=== PATIENT | female | born 1995 | race Hispanic/Latino ===

== ENCOUNTER 2017-09-06 09:24 | Emergency (ER) | payer MEDICAID ==
--- NOTE | 2017-09-06 10:50 | EDM.PDOC ---
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 she started with very slight spotting last evening which mildly increased this morning, now more like a menstrual period. She did have a positive home test about 2 weeks ago with follow-up test confirmed at a local clinicalso about 2 weeks ago. Not yet had her first visit. no chest pain, shortness of breath and also no shoulder pain . No weakness or dizziness, nausea or vomiting. Lower Back Pain Score (Numeric/FACES): 3 - Related Data Allergies Allergy/AdvReac Type Severity Reaction Status Date / Time No Known Allergies Allergy Verified 09/06/17 09:36 Home Meds: Home Meds . 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 Denies: Nausea, Vomiting : Reports: No Symptoms Musculoskeletal: Reports: Back Pain (occasional mild low back pain) Skin: Reports: No Symptoms Neurological: Reports: No Symptoms ED EXAM - Physical Exam Exam: See Below General Appearance: Alert, No Apparent Distress Eye Exam: Bilateral Eye: PERRL Throat/Mouth: Normal Inspection Head: Atraumatic. No: Facial Swelling Neck: Supple, Full Range of Motion Respiratory/Chest: No Respiratory Distress, Lungs Clear, Normal Breath Sounds Cardiovascular: Regular Rate, Rhythm GI/Abdominal Exam: Soft, Other (very mild tenderness over the lower mid pelvis, abdomen otherwise soft and nontender). No: Guarding, Rebound (Female) Exam: Vaginal Bleeding (very mild spotting at this time, no clots or tissue visualized, cervix closed.) Extremities: Normal Inspection, Normal Range of Motion Neurological: Alert, Oriented, No Motor/Sensory Deficits Skin Exam: Warm, Dry, Normal Color Course - Vital Signs Last Recorded V/S: Last Vital Signs Temp 97.3 F 09/06/17 09:33 Pulse 94 09/06/17 09:33 Resp 16 09/06/17 09:33 BP 141/86 H 09/06/17 09:33 Pulse Ox 100 09/06/17 09:33 - Orders/Labs/Meds Orders: Active Orders 24 hr Category Date Time Status OB Transvaginal [US] Stat Exams 09/06/17 10:45 Taken HCG QUANTITATIVE,SERUM [CHEM] Stat Lab 09/06/17 10:24 Received Labs: Laboratory Tests 09/06/17 Range/Units 10:24 HCG, Qual Positive H (NEGATIVE) - Re-Assessments/Exams Free Text/Narrative Re-Assessment/Exam: 09/06/17 12:54 no intrauterine visualized with transvaginal ultrasound, no other abnormal findings, see radiology report for details. Departure - Departure Time of Disposition: 12:48 Disposition: Home, Self-Care 01 Condition: Fair Clinical Impression: Miscarriage - Discharge Information Instructions: Miscarriage, [id number] Referrals: PCP,None [Primary Care Provider] - Forms: ED Department Discharge Additional Instructions: As discussed your test today was positive but no visualized with the pelvic ultrasound. It looks like you have miscarried. The spotting and bleeding you have should gradually slow down and stop over the next several days. It is recommended you follow-upwith one of your clinic providers in about 3-4 days for recheck. Return to ED as needed if symptoms worsening in any way. - My Orders Last 24 Hours: My Active Orders 09/06/17 10:24 HCG QUANTITATIVE,SERUM [CHEM] Stat 09/06/17 10:45 OB Transvaginal [US] Stat - Assessment/Plan Last 24 Hours: My Active Orders 09/06/17 10:24 HCG QUANTITATIVE,SERUM [CHEM] Stat 09/06/17 10:45 OB Transvaginal [US] Stat
--- NOTE | 2017-09-07 14:14 | US ---
First trimester obstetrical ultrasound: Multiple real-time images were obtained transvaginally. Comparison: No previous study is available. No intrauterine gestational sac is seen. Endometrium is thickened and heterogeneous measuring up to 2.2 cm. Left ovary shows a small simple cyst measuring 2.2 cm. Ovaries are otherwise unremarkable. No free fluid is seen. Impression: 1. Thickened and heterogeneous endometrial stripe with no intrauterine gestational sac. If patient has a positive test, recommend follow-up study in 11 days to further evaluate. 2. Small cyst within the left ovary felt to be incidental. Diagnostic code #3 Agree with preliminary report issued by [facility] ([facility] preliminary report dictated on 09/06/17, 1:27 PM Central Time)
== END 2017-09-06 12:56 | disposition home or self-care (01) ==
LOC: JD.ED 09:24
DX: O03.9 Complete or unspecified spontaneous abortion without complication (principal)
CPT/HCPCS: 36415; 76817; 76817-26; 84702; 84703; 99283; 99284-25

== ENCOUNTER 2020-08-27 18:34 | Emergency (ER) | payer MEDICAID, OTHER ==
--- NOTE | 2020-08-27 19:15 | EDM.PDOC ---
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 The patient states that her last menstrual period ended on August 062020 however it had lasted for 3 weeks. She states that she had heavy vaginal bleeding over the course of that 3 weeks going through 2 pads per hour. She did not seek medical care from her AQUATIC PHYSIOTHERAPIST at that time. She has not noted any vaginal bleeding since August 06 until today. She states she had sexual intercourse and immediately after had a large amount of blood from her vagina. She states she then went to the toilet and there were several small clots noted. This occurred at about 4 PM this afternoon. She states she has only gone through 1 pad since the bleeding has started. She states she has lower abdominal cramping and cramping into her back. She states that the lower abdominal cramping feels like normal menstrual cramps however she does not generally have cramps in her back. She denies any recent fever, chills, nausea, vomiting, diarrhea or constipation. She denies any urinary symptoms. She is concerned she may be and miscarrying. She states she is a 5 para 4. She states she just had a baby in March 2020. Patient is otherwise healthy and does not take any prescription medications. She does not use any form of control. - Related Data Allergies Allergy/AdvReac Type Severity Reaction Status Date / Time No Known Allergies Allergy Verified 09/06/17 09:36 Home Meds: Home Meds . [No Known Home Meds] 09/06/17 [History] Past Medical History Cardiovascular History: Reports: Hypertension AQUATIC PHYSIOTHERAPIST History: Reports: , Spontaneous Other AQUATIC PHYSIOTHERAPIST History: abnormal bleeding in 2018 Endocrine/Metabolic History: Reports: Diabetes, Gestational, Obesity/BMI 30+ - Past Surgical History GI Surgical History: Reports: Cholecystectomy Female Surgical History: Reports: Section Social & Family History - Family History Family Medical History: No Pertinent Family History - Tobacco Use Tobacco Use Status *Q: Never Tobacco User Second Hand Smoke Exposure: No - Caffeine Use Caffeine Use: Reports: Coffee, Soda - Recreational Drug Use Recreational Drug Use: No ED ROS GENERAL - Review of Systems Review Of Systems: Comprehensive ROS is negative, except as noted in HPI. ED EXAM, RENAL/ - Physical Exam Exam: See Below Exam Limited By: No Limitations General Appearance: Alert, WD/WN, No Apparent Distress Ears: Normal External Exam, Hearing Grossly Normal Nose: Normal Inspection Throat/Mouth: Normal Inspection, Normal Lips, Normal Voice, No Airway Compromise Head: Atraumatic Neck: Normal Inspection Respiratory/Chest: No Respiratory Distress, Lungs Clear, Normal Breath Sounds, No Accessory Muscle Use, Chest Non-Tender Cardiovascular: Normal Peripheral Pulses, Regular Rate, Rhythm, No Edema, No Murmur GI/Abdominal: Normal Bowel Sounds, Soft, Non-Tender, No Distention (Female) Exam: Deferred Rectal (Female) Exam: Deferred Back Exam: Normal Inspection, Full Range of Motion Extremities: Normal Inspection, Normal Range of Motion, Non-Tender, No Pedal Edema, Normal Capillary Refill Neurological: Alert, Oriented, Normal Cognition Psychiatric: Normal Affect, Normal Mood Skin Exam: Warm, Dry, Intact, Normal Color, No Rash Lymphatic: No Adenopathy Course - Vital Signs Text/Narrative:: 25-year-old female who presents with vaginal bleeding. She states her last menstrual cycle ended on August 062020 and this cycle had lasted for 3 weeks. She states it was fairly heavy going through about 1 pad per hour however she did not seek care from her AQUATIC PHYSIOTHERAPIST. She has denied any fever, chills, nausea, vomiting diarrhea or urinary symptoms. She states she has having slight cramping to her lower abdomen which she states are similar to her normal menstrual cramps however she is having cramping to her lower back as well. I have ordered CBC, urinalysis and urine on this patient. Last Recorded V/S: Last Vital Signs Temp 97.4 F 08/27/20 18:42 Pulse 92 08/27/20 18:42 Resp 12 08/27/20 18:42 BP 124/68 08/27/20 18:42 Pulse Ox 100 08/27/20 18:42 - Orders/Labs/Meds Labs: Laboratory Tests 08/27/20 08/27/20 08/27/20 Range/Units 19:09 19:10 19:15 WBC 11.49 H (3.98-10.04) K/mm3 RBC 4.76 (3.98-5.22) M/mm3 Hgb 11.5 (11.2-15.7) gm/dl Hct 36.5 (34.1-44.9) % MCV 76.7 L (79.4-94.8) fl MCH 24.2 L (25.6-32.2) pg MCHC 31.5 L (32.2-35.5) g/dl RDW Std Deviation 41.8 (36.4-46.3) fL Plt Count 373 H (182-369) K/mm3 MPV 9.4 (9.4-12.3) fl Neut % (Auto) 68.9 (34.0-71.1) % Lymph % (Auto) 22.1 (19.3-51.7) % [place] % (Auto) 5.5 (4.7-12.5) % Eos % (Auto) 3.0 (0.7-5.8) Baso % (Auto) 0.2 (0.1-1.2) % Neut # (Auto) 7.92 H (1.56-6.13) K/mm3 Lymph # (Auto) 2.54 (1.18-3.74) K/mm3 [place] # (Auto) 0.63 H (0.24-0.36) K/mm3 Eos # (Auto) 0.35 (0.04-0.36) K/mm3 Baso # (Auto) 0.02 (0.01-0.08) K/mm3 Urine Color Yellow (Yellow) Urine Appearance Clear (Clear) Urine pH 6.0 (5.0-8.0) Ur Specific [place] > or = 1.030 (1.005-1.030) Urine Protein Negative (Negative) Urine Glucose (UA) Negative (Negative) Urine Ketones Negative (Negative) Urine Occult Blood 2+ H (Negative) Urine Nitrite Negative (Negative) Urine Bilirubin Negative (Negative) Urine Urobilinogen 0.2 (0.2-1.0) Ur Leukocyte Esterase Negative (Negative) Urine RBC >100 H (0-5) /hpf Urine WBC 0-5 (0-5) /hpf Ur Squamous Epith Cells 0-5 (0-5) /hpf Urine Bacteria Few (FEW) /hpf Urine Mucus Few (FEW) /hpf Urine HCG, Qual Negative (NEGATIVE) - Re-Assessments/Exams Free Text/Narrative Re-Assessment/Exam: 08/27/20 19:35 Hematology reveals a WBC of 11.49 hemoglobin 11.5, hematocrit 36.5, platelet c ount 373 Urinalysis reveals 2+ occult blood, urine RBCs greater than 100, urine hCG is negative. Patient will be discharged home with recommendations that she follow-up with her primary care physician/OBGYN in the next week to 10 days. She has also been given strict return precautions regarding if she develops heavy bleeding such as going through more than 1 pad every 15 to 30 minutes or he begins passing large clots. Patient is agreeable to this plan of care. Departure - Departure Time of Disposition: 19:36 Disposition: Home, Self-Care 01 Condition: Good Clinical Impression: Vaginal bleeding - Discharge Information Referrals: PCP,None [Primary Care Provider] - Forms: ED Department Discharge Additional Instructions: You were seen in the emergency department today for spontaneous vaginal bleeding. You are concerned you may be and miscarrying however lab work was completed and you are not . Your hemoglobin levels are stable at this time. You do not have a urinary tract infection. Recommend that you follow-up with your AQUATIC PHYSIOTHERAPIST in the next week to 10 days regarding your irregular cycles and heavy vaginal bleeding. Should you develop heavy blood vaginal bleeding such as going through 1 pad every 15 to 30 minutes or passing large clots, you need to be reevaluated. You may take ibuprofen 600 mg every 6-8 hours for the cramping or Tylenol 650 mg every 4 hours. Should your condition worsen or change, do not hesitate returning to the emergency department. Sepsis Event Note (ED) - Evaluation Sepsis Screening Result: No Definite Risk - Focused Exam Vital Signs: Vital Signs Temp Pulse Resp BP Pulse Ox 08/27/20 18:42 97.4 F 92 12 124/68 100
== END 2020-08-27 19:47 | disposition home or self-care (01) ==
LOC: JD.ED 18:34
DX: N93.9 Abnormal uterine and vaginal bleeding, unspecified (principal); I10 Essential (primary) hypertension; E66.9 Obesity, unspecified; Z68.42 Body mass index [BMI] 45.0-49.9, adult
CPT/HCPCS: 36415; 81001; 81025; 85025; 99282; 99284

== ENCOUNTER 2023-02-12 22:00 | Emergency (ER) | payer OTHER | END 2023-02-12 22:47 | disposition home or self-care (01) | LOC: JD.ED 22:00 | DX: T63.441A Toxic effect of venom of bees, accidental (unintentional), initial encounter (principal); I10 Essential (primary) hypertension; E66.9 Obesity, unspecified; Z68.30 Body mass index [BMI] 30.0-30.9, adult | CPT/HCPCS: 99282; 99283 ==

== ENCOUNTER 2025-03-21 12:14 | Emergency (ER) | payer MEDICAID, OTHER ==
[2025-03-21] MEDS ORDERED: Sodium Chloride 0.9% 10 ML Syringe FLUSH PRN (13:32)
[2025-03-21] MEDS: cefTRIAXone 1 GM in Water For Injection, Sterile 10 ML IVPUSH ONE (13:53)
[2025-03-21] MEDS: Ketorolac 30 MG/ML SDV IVPUSH ONE (13:53)
== END 2025-03-21 15:35 | disposition home or self-care (01) ==
LOC: JD.ED 12:14
DX: N61.1 Abscess of the breast and nipple (principal); N60.01 Solitary cyst of right breast; I10 Essential (primary) hypertension; E66.9 Obesity, unspecified; Z90.49 Acquired absence of other specified parts of digestive tract; Z68.42 Body mass index [BMI] 45.0-49.9, adult
CPT/HCPCS: 10160; 87070; 87075; 87205; 96374; 96375; 99284; J0696; J1885; J2003